=== PATIENT | male | born 1955 | race Asian ===

== ENCOUNTER 2018-04-10 11:41 | Emergency (ER) | payer OTHER ==
--- NOTE | 2018-04-10 11:58 | EDPHY ---
H & P Time Seen by Provider: 04/10/18 11:58 HPI/ROS: CHIEF COMPLAINT: Hallucinations HISTORY OF PRESENT ILLNESS: This is a 62-year-old male with a history of alcohol abuse. He is here at the urging of his . He tells me that since July he has been drinking 0.5 L of vodka daily. He recently decided that he wanted to attain sobriety and states that he quit drinking alcohol about 1 week ago. He has quit on his own in the past but has not maintained sobriety. His longest spell of sobriety lasted for 2 years and this occurred over 3 years ago. He has never had an alcohol withdrawal seizure and has never experienced hallucinations before. In the past he has had a mild tremor and some vomiting when he stopped drinking. He tells me that he is experiencing hallucinations at night and is having difficulty sleeping. For the past few nights he has had the impression that someone is pushing him. He is aware that there is no one in the room other than his . He tells me that he "can feel every hair on my head". He notes a mild tremor of his hands. He has not had any GI symptoms. He is not experiencing headache, palpitations, sweating, agitation, disorientation, or confusion. He has not had a seizure. No history of head trauma. He does not take any anticoagulants. REVIEW OF SYSTEMS: A ten system review of systems was performed and is negative with the exception of the items mentioned in the HPI. Past medical history: Alcohol abuse Social history: He lives with his . 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 He does not use tobacco products or illicit drugs. Alcohol use as above. General Appearance: Alert. Vital signs reviewed. Blood pressure 141/82 at triage. Eyes: Pupils equal and round, no conjunctival injection, no discharge. Anicteric. ENT, Mouth: Mucous membranes are moist, no oropharyngeal erythema or edema. Neck: No lymphadenopathy, supple. Respiratory: Lungs are clear to auscultation; no wheezes, rales, or rhonchi. Cardiovascular: Regular rate and rhythm; no murmur, rub, or gallop. Gastrointestinal: Abdomen is soft and nontender, no masses or organomegaly, bowel sounds normal. Skin: Warm and dry, no rashes on exposed skin, normal color. Back: Nontender to palpation over the thoracolumbar spine. No CVAT. Extremities: No lower extremity edema, no calf tenderness or swelling. Neurological: Alert and oriented. Moving all four extremities easily and equally. Cranial nerves II through XII are examined and are intact (visual acuity not tested). Strength is 5 over 5 bilaterally with testing of all major motor groups. Sensation is intact to light touch over all 4 extremities. Deep tendon reflexes are 2+ in the biceps and knees bilaterally. Gait is normal. [id number] is performed with slight past pointing bilaterally. No truncal ataxia. Negative Romberg. Psychiatric: Normal affect. No agitation. - Medical/Surgical History Hx Asthma: No Hx Chronic Respiratory Disease: No Hx Diabetes: No Hx Cardiac Disease: No Hx Renal Disease: No Hx Cirrhosis: No Hx Alcoholism: No Hx HIV/AIDS: No Hx Splenectomy or Spleen Trauma: No Other PMH: HTN- ETOH - Social History Smoking Status: Never smoked Constitutional: Initial Vital Signs Temperature (C) 36.6 C 04/10/18 11:54 Heart Rate 76 04/10/18 11:54 Respiratory Rate 16 04/10/18 11:54 Blood Pressure 141/82 H 04/10/18 11:54 O2 Sat (%) 94 04/10/18 11:54 O2 Delivery Mode Room Air Allergies/Adverse Reactions: No Known Allergies Allergy (Verified 04/10/18 11:52) Home Medications: Medication Instructions Recorded Fish Oil 03/31/13 Lisinopril 03/31/13 chlordiazePOXIDE [Librium 25 mg 25 mg PO Q6HRS PRN #10 cap 04/10/18 (*)] Medical Decision Making ED Course/Re-evaluation: 62-year-old male with a history of alcohol dependence/abuse. He states that he quit drinking about 1 week ago. He is here because he is having difficulty sleeping and feels that he is having some hallucinations at night. These do not trouble him during the day. He is noted to be slightly hypertensive in the emergency department he has a very mild hand tremor. Neurologic exam is normal and he is awake and alert and fully appropriate in his presentation. We discussed the possibility of his symptoms representing hallucinations secondary to alcohol withdrawal. This could also be sleep deprivation/insomnia secondary to alcohol withdrawal. Both he and his were aware that his symptoms could have another etiology--it seems unlikely that he has a metabolic encephalopathy given that his symptoms seem to occur only at night. This could be for signs of an early dementia. Obviously an early dementia would not diagnosed in the emergency department. He could be experiencing effects of sleep deprivation, separate from insomnia related to alcohol cessation. I do not suspect stroke or ICH. There is nothing in his history or physical to suggest infection. We discussed possible approaches. He would like to try some medication to help him at night. I think that his symptoms are likely due to alcohol withdrawal and I am giving him a small quantity of Librium to use as needed. He is also given information about resources that can help him with sobriety and I strongly encouraged him to avail himself of these resources. I am recommending follow up with his primary care provider. We reviewed the danger signs that should prompt him to be seen immediately in an emergency department in these include seizure, palpitations/high blood pressure and DTs. Departure - Departure Disposition: Home, Routine, Self-Care Clinical Impression: Alcohol dependence Qualifiers: Substance use status: in withdrawal Complication of substance-induced condition : with perceptual disturbance Qualified Code(s): F10.232 - Alcohol dependence with withdrawal with perceptual disturbance Condition: Good Instructions: Chlordiazepoxide (By mouth), Alcohol Withdrawal (ED), Alcohol Dependence (ED), Hallucinations (ED) Additional Instructions: I am prescribing a small quantity of Librium (chlordiazepoxide) to see if this helps with your hallucinations/trouble sleeping/tremors. You can take 25 mg every six hours as needed for symptoms. Based upon what you have told me, you will probably only need this medicine at night and hopefully for only a few nights. If needed, you can take two pills at once. This medicine is a sedative so you shouldn't drive for six hours after taking it. If you find that you are having worsening symptoms you will need to be re- evaluated. We are assuming that your hallucinations are due to alcohol withdrawal, but there are other things that can cause hallucinations. If you find that the problem is persisting, please be re-evaluated by your primary care doctor. If you have worsening problems with withdrawal--tremulousness, high heart rate, worsening hallucinations, seizure--you need to be re-evaluated immediately in the emergency department. I am giving you information about [facility]. This is located in [place] and is available to anyone 24 hr a day for help with alcohol withdrawal. I urge you to attend Alcoholics Anonymous. Referrals: Mg Castillo, [Primary Care Provider] - As per Instructions AA Hotline [Outside] - As per Instructions [facility] 24 Hours [Outside] - As per Instructions Prescriptions: chlordiazePOXIDE [Librium 25 mg (*)] 25 mg PO Q6HRS PRN #10 cap PRN Reason: alcohol withdrawal
[2018-04-10 13:06] VITALS: BP 160/82
== END 2018-04-10 12:57 | disposition home or self-care (01) ==
LOC: CED 11:41
DX: F10.232 Alcohol dependence with withdrawal with perceptual disturbance (principal); I10 Essential (primary) hypertension
CPT/HCPCS: 99284-ER